=== PATIENT | female | born 1960 | race Caucasian/White ===

== ENCOUNTER → 2016-09-12 | Outpatient (CLI) | payer BC ==
[~2016-09-12] MED LIST: ANT25 PO; ASPCH81X PO; LEVO-14 PO; LSN/10125 PO; MULT-506 PO; PRM625 PO
== END | disposition home or self-care (01) ==
LOC: C.PAPS 16:33
PROVIDERS: ATTEND Obstetrics & Gynecology
DX: Z01.419 Encounter for gynecological examination (general) (routine) without abnormal findings (principal)

== ENCOUNTER → 2017-02-13 | Outpatient (CLI) | payer BC ==
--- NOTE | 2017-02-14 12:34 | MAMMOGRAPHY REPORT ---
BILATERAL DIGITAL SCREENING MAMMOGRAM TOMOSYNTHESIS WITH CAD: 02/13/2017 CLINICAL HISTORY: Routine screening. TECHNIQUE: Breast tomosynthesis in addition to standard 2D mammography was performed. Current study was also evaluated with a Computer Aided Detection (CAD) system. COMPARISON: Comparison is made to exams dated: 02/14/2016 mammogram, 02/05/2016 mammogram, 01/31/2015 ma mmogram, 01/24/2014 mammogram, 01/21/2013 mammogram, and 01/13/2012 mammogram - [facility]. BREAST COMPOSITION: There are scattered areas of fibroglandular density in both breasts. FINDINGS: No suspicious masses, calcifications, or areas of architectural distortion are noted in ei ther breast. There has been no significant interval change compared to prior exams. IMPRESSION: ACR BI-RADS CATEGORY 1: NEGATIVE There is no mammographic evidence of malignancy. A 1 year screening mammogram is recommended. The pa tient will receive written notification of the results. Approximately 10% of breast cancers are not detected with mammography. A negative mammographic report should not delay biopsy if a clinically suggestive mass is present. Marina Naidu M.D. /:02/13/2017 16:29:50 Full Stack Php Developer: Prosper CHAUHAN(Marino)(M), [facility] letter sent: Normal 1/2 BI-RADS Code: ACR BI-RADS Category 1: Negative
== END | disposition home or self-care (01) ==
LOC: C.MAMM 16:01
PROVIDERS: ATTEND Obstetrics & Gynecology
DX: Z12.31 Encounter for screening mammogram for malignant neoplasm of breast (principal)

== ENCOUNTER → 2017-09-19 | Outpatient (CLI) | payer OTHER | END | disposition home or self-care (01) | LOC: C.PAPS 17:04 | PROVIDERS: ATTEND Obstetrics & Gynecology | DX: Z12.4 Encounter for screening for malignant neoplasm of cervix (principal) ==

== ENCOUNTER → 2018-01-26 | Outpatient (CLI) | payer OTHER ==
--- NOTE | 2018-01-26 13:42 | DIAGNOSTIC IMAGING REPORT ---
L KNEE 1 OR 2 VIEWS ROUTINE CLINICAL HISTORY: 57 years-old Female presenting with LEFT KNEE PAIN. TECHNIQUE: Frontal and lateral views of the left knee were obtained. COMPARISON: None. FINDINGS: Knee joint congruent. No joint space loss. No acute fracture or malalignment. Trace patellofemoral and possibly medial compartment osteophytosis. Trace knee joint effusion suggested. Soft tissue swelling over the anterior knee. IMPRESSION: 1. No acute osseous injury. 2. Trace knee joint effusion. 3. Trace degenerative changes primarily in the patellofemoral compartment. Electronically signed by: Mckinley Mcmahon M.D. 01/26/2018 1:40 PM Dictated Date/Time: 01/26/2018 1:38 PM
--- NOTE | 2018-01-26 13:49 | DIAGNOSTIC IMAGING REPORT ---
R ANKLE MIN 3 VIEWS ROUTINE HISTORY: 57 years-old Female RIGHT ANKLE PAIN acute right ankle pain COMPARISON: None available TECHNIQUE: 3 views of the right ankle FINDINGS: Mild marginal spurring about the tibiotalar joint. 3 mm bony density projects over the medial clear space, possibly reflecting intra-articular loose body. No acute fracture or dislocation. Large calcified about the plantar calcaneus. Mild marginal spurring about the midfoot. There is mild circumferential soft tissue swelling about the ankle, greatest anteromedially with small joint effusion. IMPRESSION: 1. Soft tissue swelling without acute fracture or dislocation. 2. 3 mm radiodensity projecting over the medial clear space may reflect an intra-articular loose body. The above report was generated using voice recognition software. It may contain grammatical, syntax or spelling errors. Electronically signed by: Dru Lozano M.D. 01/26/2018 1:48 PM Dictated Date/Time: 01/26/2018 1:45 PM
== END | disposition home or self-care (01) ==
LOC: C.RAD1850 13:23
PROVIDERS: ATTEND Nurse Practitioner Adult Health
DX: M25.571 Pain in right ankle and joints of right foot (principal); M25.562 Pain in left knee